=== PATIENT | male | born 2000 | race African-American/Black ===

== ENCOUNTER 2022-11-09 17:32 | Emergency (ER) | payer BC ==
[2022-11-09 17:41] VITALS: BP 117/58; O2SAT 97
[2022-11-09] MEDS ORDERED: oxyCODONE 5 MG TABLET PO STA ×2 (18:41→19:49)
[2022-11-09] MEDS ORDERED: BACITRACIN ZINC OINT 1 PACKET TOP STA (18:44)
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
--- NOTE | 2022-11-09 19:31 | XRAY Report ---
PROCEDURE: Hip w/Pelvis 2-3V LT INDICATIONS: FALL, HIP PAIN TECHNIQUE: AP pelvis with lateral view(s) of the left hip(s). COMPARISON: None. FINDINGS: Bones: No fractures or dislocations. No suspicious bony lesions. 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 IMPRESSION: No acute bony abnormality. Reviewed by: Carlos A Patton MD on 11/09/2022 6:30 PM AKSHAWN Approved by: Carlos A Patton MD on 11/09/2022 6:30 PM AKDT Station ID: [id number]
== END 2022-11-09 20:37 | disposition home or self-care (01) ==
LOC: ED 17:32
DX: S70.02XA Contusion of left hip, initial encounter (principal); V19.9XXA Pedal cyclist (driver) (passenger) injured in unspecified traffic accident, initial encounter; Y93.55 Activity, bike riding
CPT/HCPCS: 99283; 99284